=== PATIENT | male | born 1970 | race African-American/Black ===

== ENCOUNTER → 2018-07-15 | Outpatient (CLI) | payer MEDICARE | END | disposition home or self-care (01) | LOC: CARD 09:07 | PROVIDERS: ATTEND Psychiatry & Neurology Neurology | DX: G40.909 Epilepsy, unspecified, not intractable, without status epilepticus (principal) ==

== ENCOUNTER → 2023-11-05 | Day surgery (SDC) | payer MEDICARE, MEDICAID ==
[~2023-11-05] VITALS: Ht 193 cm; Wt 75.7 kg
[~2023-11-05] MED LIST: ACET-2708 PO; AZAT50TA24 PO; BALANCED SALT IRRIG SOLN 15ML ONE; BALANCED SALT IRRIG SOLN COMB1 500ML OP SCH; CARV12.545 PO; CYCLOPENTOLATE HCL 1% OPHTH DROPS 2ML LEFTEYE SCH; DEXTROSE 50% WATER 50ML SYRINGE IV ONE; DEXTROSE 50% WATER 50ML SYRINGE IV PRN; FENTANYL CITRATE/PF 50MCG/ML 2ML VIAL ONE; FERR325T6 PO; GABA-529 PO; GABA-532 PO; HYALURONATE SODIUM 10MG/ML 0.85ML SYRINGE IO ONE; HYDR50TA40 PO; INSU100C6 SQ; INSU100I28 SQ; INSU100V43 SQ; LEVO50TA8 PO; MIDAZOLAM HCL 2 MG/2 ML VIAL ONE; PHENYLEPHRINE HCL 10% OPHTH DROPS 5ML LEFTEYE SCH; PRED5TAB PO; PROT40 PO; SODIUM CHLORIDE 0.9% 500 ML IV SCH; TACR1CAP2 PO; TROPICAMIDE 1% OPHTH DROPS 15ML LEFTEYE SCH; TRYPAN BLUE 0.5 ML DISP.SYRIN IO ONE
[2023-11-05 06:24] LABS: BASOPHILS % 0.7 % (0.0-2.0); EOSINOPHILS % 1.8 % (0.0-5.0); HEMOGLOBIN. 12.9 g/dL (14.0-18.0); MEAN CORPUSCULAR HGB CONC 32.1 g/dL (31.0-37.0); MEAN CORPUSCULAR VOLUME 90.2 fL (80.0-94.0); MEAN PLATELET VOLUME 8.2 fl (7.4-10.4); MONOCYTES % 7.4 % (2.0-8.0); NEUTROPHILS % 52.1 % (40.0-76.0); PLATELET 139 x1000/uL (130-400); RED BLOOD CELL COUNT 4.44 mill/uL (4.7-6.1); RED CELL DISTRIBUTION WIDTH 14.3 % (11.6-14.6); WHITE BLOOD COUNT 4.2 x1000/uL (4.5-11.0)
[2023-11-05 06:29] LABS: POTASSIUM 4.4 mEq/L (3.5-5.1)
[2023-11-05 06:30] LABS: CALCIUM 10.5 mg/dL (8.7-10.4)
[2023-11-05 06:35] LABS: CREATININE 2.8 mg/dL (0.6-1.3)
[2023-11-05] MEDS: DEXT 5%/0.45% NACL 1000ML 1,000 ML IV SCH (07:53)
[2023-11-05] MEDS: DEXTROSE/DEXTRIN/MALTOSE 31GM TUBE (24GM/SERVING) PO NR (07:53)
== END | disposition home or self-care (01) ==
LOC: OR 05:41
PROVIDERS: ATTEND Ophthalmology
DX: E11.36 Type 2 diabetes mellitus with diabetic cataract (principal); H25.22 Age-related cataract, morgagnian type, left eye; I12.9 Hypertensive chronic kidney disease with stage 1 through stage 4 chronic kidney disease, or unspecified chronic kidney disease; E11.22 Type 2 diabetes mellitus with diabetic chronic kidney disease; N18.6 End stage renal disease; E78.5 Hyperlipidemia, unspecified; M19.90 Unspecified osteoarthritis, unspecified site; Z79.4 Long term (current) use of insulin; Z79.899 Other long term (current) drug therapy; Z98.890 Other specified postprocedural states
CPT/HCPCS: 66982; 80048; 82962; 85025; 36415; 93005; V2632; J3010; J3490 ×3; J2250; Q9957

== ENCOUNTER → 2024-01-07 | Day surgery (SDC) | payer MEDICARE, MEDICAID ==
[~2024-01-07] VITALS: Ht 193 cm; Wt 76.2 kg
[~2024-01-07] MED LIST changes: -ACET-2708 PO; +ACETYLCHOLINE CHLORIDE INTRAOCULAR SOLUTION 1:100 ELECTROLYTE DILUENT IO ONE; -BALANCED SALT IRRIG SOLN 15ML ONE; +BALANCED SALT IRRIG SOLN COMB1 500ML OP NR; -BALANCED SALT IRRIG SOLN COMB1 500ML OP SCH; -CYCLOPENTOLATE HCL 1% OPHTH DROPS 2ML LEFTEYE SCH; +CYCLOPENTOLATE HCL 1% OPHTH DROPS 2ML RIGHTEYE NR; -DEXTROSE 50% WATER 50ML SYRINGE IV ONE; -DEXTROSE 50% WATER 50ML SYRINGE IV PRN; -FENTANYL CITRATE/PF 50MCG/ML 2ML VIAL ONE; +GLYCOPYRROLATE 0.2 MG/ML 2ML VIAL IV PRN; +HYDRALAZINE 20MG/ML VIAL IV PRN; +HYDROMORPHONE HCL/PF 1MG/ML INJ IV PRN; -INSU100V43 SQ; +LABETALOL 5MG/ML 4ML INJ IV PRN; -MIDAZOLAM HCL 2 MG/2 ML VIAL ONE; -PHENYLEPHRINE HCL 10% OPHTH DROPS 5ML LEFTEYE SCH; +PHENYLEPHRINE HCL 10% OPHTH DROPS 5ML RIGHTEYE NR; +PROPOFOL 200MG/20ML VIAL IV ONE; -SODIUM CHLORIDE 0.9% 500 ML IV SCH; -TROPICAMIDE 1% OPHTH DROPS 15ML LEFTEYE SCH; +TROPICAMIDE 1% OPHTH DROPS 15ML RIGHTEYE NR
[2024-01-07 07:43] LABS: BASOPHILS % 0.5 % (0.0-2.0); HEMATOCRIT. 40.8 % (42.0-52.0); LYMPHOCYTES % 32.3 % (20.0-50.0); MEAN CORPUSCULAR HEMOGLOBIN 28.5 pg (28.0-32.0); MEAN CORPUSCULAR HGB CONC 31.9 g/dL (31.0-37.0); MEAN CORPUSCULAR VOLUME 89.3 fL (80.0-94.0); MONOCYTES % 6.4 % (2.0-8.0); NEUTROPHILS % 59.8 % (40.0-76.0); PLATELET 163 x1000/uL (130-400); RED BLOOD CELL COUNT 4.57 mill/uL (4.7-6.1); RED CELL DISTRIBUTION WIDTH 14.6 % (11.6-14.6); WHITE BLOOD COUNT 5.6 x1000/uL (4.5-11.0)
[2024-01-07 07:49] LABS: CALCIUM 10.5 mg/dL (8.7-10.4)
[2024-01-07 07:54] LABS: CREATININE 2.5 mg/dL (0.6-1.3)
[2024-01-07] MEDS: SODIUM CHLORIDE 0.9% 1,000 ML IV SCH (08:19)
[2024-01-07] MEDS: DEXTROSE 50% WATER 50ML SYRINGE IV PRN (08:19)
== END | disposition home or self-care (01) ==
LOC: OR 07:02
PROVIDERS: ATTEND Ophthalmology
DX: E11.36 Type 2 diabetes mellitus with diabetic cataract (principal); H25.89 Other age-related cataract; I12.9 Hypertensive chronic kidney disease with stage 1 through stage 4 chronic kidney disease, or unspecified chronic kidney disease; E11.22 Type 2 diabetes mellitus with diabetic chronic kidney disease; N18.9 Chronic kidney disease, unspecified; E78.5 Hyperlipidemia, unspecified; M19.90 Unspecified osteoarthritis, unspecified site; Z85.46 Personal history of malignant neoplasm of prostate; Z79.4 Long term (current) use of insulin; Z79.899 Other long term (current) drug therapy; Z98.890 Other specified postprocedural states
CPT/HCPCS: 66982; 80048; 82962; 85025; 36415; 93005; V2632; J3490 ×4; J2704; Q9957